=== PATIENT | male | born 1990 | race Caucasian/White ===

== ENCOUNTER 2019-08-17 09:09 | Day surgery (SDC) | payer OTHER ==
[~2019-08-17] VITALS: Ht 182.9 cm; Wt 79.3 kg
[2019-08-17] MEDS ORDERED: CELE200C PO (09:56)
[2019-08-17] MEDS ORDERED: OXYC-302 PO (09:56)
[2019-08-17] MEDS ORDERED: GABAPENTIN 300 MG CAPSULE PO ONE (10:00)
[2019-08-17 10:09] VITALS: BP 125/81
[2019-08-17] MEDS ORDERED: MIDAZOLAM 1 MG/ML, 2ML ONE (10:25)
[2019-08-17] MEDS ORDERED: FENTANYL PF 250 MCG/5ML ONE (10:25)
[2019-08-17] MEDS ORDERED: CEFAZOLIN 1,000 MG ONE (10:26)
[2019-08-17] MEDS ORDERED: GLYCOPYRROLATE 0.2MG/1ML, 5ML ONE (10:26)
[2019-08-17] MEDS ORDERED: NEOSTIGMINE 1 MG/ML, 10ML ONE (10:26)
[2019-08-17] MEDS ORDERED: PROPOFOL 10 MG/ML, 20ML ONE (10:26)
[2019-08-17] MEDS ORDERED: ROCURONIUM 10MG/ML,5ML ONE (10:26)
[2019-08-17] MEDS ORDERED: LACTATED RINGERS 1,000 ML IV SCH (11:00)
[2019-08-17] MEDS ORDERED: BUPIVACAINE/PF-EPI 0.5% 1:200K ONE (11:02)
[2019-08-17] MEDS ORDERED: CLINDAMYCIN 150 MG/ML, 6ML ONE (11:19)
[2019-08-17] MEDS ORDERED: ONDANSETRON 2MG/ML, 2ML IV PRN (11:30)
[2019-08-17] MEDS ORDERED: OXYcodone 5 MG/5 ML ORAL.SOL UDC PO PRN (11:30)
[2019-08-17] MEDS ORDERED: hydrALAzine 20 MG/ML, 1ML IV PRN (11:30)
[2019-08-17] MEDS ORDERED: HYDROmorphone 2 MG/ML, 1ML IVPush PRN (11:30)
[2019-08-17] MEDS ORDERED: FENTANYL PF 100 MCG/2ML IV PRN (11:30)
[2019-08-17] MEDS ORDERED: MEPERIDINE/PF 25MG/ML,1ML IVPush PRN (11:30)
[2019-08-17] MEDS ORDERED: LABETALOL 5MG/ML, 20ML IV PRN (11:30)
[2019-08-17] MEDS ORDERED: MORPHINE SULFATE 4 MG/ML, 1ML IVPush PRN (11:30)
[2019-08-17] MEDS ORDERED: MEPERIDINE/PF 25MG/ML,1ML ONE (12:27)
[2019-08-17] MEDS ORDERED: FENTANYL PF 100 MCG/2ML ONE (12:35)
[2019-08-17] MEDS ORDERED: OXYcodone 5 MG/5 ML ORAL.SOL UDC ONE (12:35)
== END 2019-08-17 14:20 | disposition home or self-care (01) ==
LOC: OUT 09:09
PROVIDERS: ATTEND Orthopaedic Surgery
DX: S42.021A Displaced fracture of shaft of right clavicle, initial encounter for closed fracture (principal); Z79.1 Long term (current) use of non-steroidal anti-inflammatories (NSAID); Z79.891 Long term (current) use of opiate analgesic; Z79.899 Other long term (current) drug therapy; Z88.8 Allergy status to other drugs, medicaments and biological substances; W17.89XA Other fall from one level to another, initial encounter; Y93.23 Activity, snow (alpine) (downhill) skiing, snowboarding, sledding, tobogganing and snow tubing; Y92.89 Other specified places as the place of occurrence of the external cause; Y99.8 Other external cause status
CPT/HCPCS: 23515; 73000; C1713; J0690; J2175; J2250; J2704; J2710; J3010; J7120; 76000